=== PATIENT | female | born 1985 | race Caucasian/White ===

== ENCOUNTER 2016-08-21 21:00 | Inpatient (IN) | payer SELFPAY ==
[~2016-08-21] VITALS: Ht 149.9 cm; Wt 66.9 kg
[~2016-08-21 21:00] MED LIST: DILAUDID2 MG PO; MACROBID100 MG PO; NAPROSYN500 MG PO; NARCAN4 MG NS; NOHOMEMEDS; VIBRAMYCIN100 M2 PO
[2016-08-21 21:37] LABS: HEMATOCRIT 37.3 % (36.0-46.0); MCHC 32.4 G/DL (30.0-36.0); MCV 92.6 FL (83-99); MEAN PLAT.VOLUME 9.4 uM^3 (9.5-12.4); PLATELET COUNT 204 K/uL (156-360); RBC DIS.WIDTH-CV 14.8 % (11.8-14.6); RBC DIS.WIDTH-SD 50.5 % (39-53); RED BLOOD COUNT 4.03 M/uL (3.80-5.20); WHITE BLOOD COUNT 6.9 K/uL (4.1-10.2)
[2016-08-21 21:45] LABS: CHLORIDE 106 mEq/L (99-109)
[2016-08-21 21:46] LABS: POTASSIUM 3.4 mEq/L (3.7-5.4); SODIUM 140 mEq/L (136-147)
[2016-08-21 21:47] LABS: GLUCOSE 135 mg/dL (70-99)
[2016-08-21 21:49] LABS: ANION GAP 10 MEQ/L (2-14)
[2016-08-21 21:51] LABS: GFR ESTIMATE (CALCULATED) > 59 mL/min/
[2016-08-21 21:52] LABS: UREA NITROGEN (BUN) 19 mg/dL (9-23)
[2016-08-21 22:00] LABS: QUANTITATIVE HCG < 4.0 MIU/ML
[2016-08-21] MEDS ORDERED: NARCAN4 MG NS (22:24)
[2016-08-22 07:43] VITALS: BP 95/53
[2016-08-22 15:44] VITALS: BP 105/64
[2016-08-23 07:57] VITALS: BP 103/61
== END 2016-08-23 13:32 | disposition home or self-care (01) | DRG 885 ==
LOC: EME → EDBD 21:00 → 1WEST 08-22 00:20 → EDOF 08-22 00:20 → 1WEST 08-22 02:42
PROVIDERS: Emergency Medicine
DX: F33.9 Major depressive disorder, recurrent, unspecified (principal); F11.20 Opioid dependence, uncomplicated; F41.1 Generalized anxiety disorder; F14.20 Cocaine dependence, uncomplicated; G47.00 Insomnia, unspecified; F43.23 Adjustment disorder with mixed anxiety and depressed mood; F17.210 Nicotine dependence, cigarettes, uncomplicated; T40.1X1A Poisoning by heroin, accidental (unintentional), initial encounter
CPT/HCPCS: 71010; 80048; 84702; 85027; 90839; 93005; 97150 GO; 97166 GO; 99281; 99285; J2310; Q0177